=== PATIENT | female | born 1995 | race Caucasian/White ===

== ENCOUNTER 2019-08-14 15:56 | Emergency (ER) | payer OTHER ==
[~2019-08-14] VITALS: Ht 160 cm; Wt 54.4 kg
== END 2019-08-14 23:30 | disposition home or self-care (01) ==
LOC: ER 15:56
DX: O21.0 Mild hyperemesis gravidarum (principal); Z34.01 Encounter for supervision of normal first pregnancy, first trimester

== ENCOUNTER → 2019-08-19 | Emergency (ER) | payer OTHER ==
[~2019-08-19] VITALS: Ht 160 cm; Wt 54.4 kg
== END | disposition home or self-care (01) ==
LOC: ER 20:35
DX: O21.0 Mild hyperemesis gravidarum (principal); Z34.81 Encounter for supervision of other normal pregnancy, first trimester

== ENCOUNTER 2019-11-19 14:25 | Inpatient (IN) | payer OTHER ==
[~2019-11-19] VITALS: Ht 160 cm; Wt 59.0 kg
== END 2019-11-22 14:33 | disposition home or self-care (01) | DRG 833 ==
LOC: OBS/DEL 14:25 → LDR 11-20 10:46 → OB/GYN 11-20 10:46
PROVIDERS: ADMIT Obstetrics & Gynecology Obstetrics
PROC: 8E0ZXY6 Isolation (ICD-10-PCS; principal; 2019-11-20)
PROC: 4A1HXCZ Monitoring of Products of Conception, Cardiac Rate, External Approach (ICD-10-PCS; 2019-11-20)
DX: O26.892 Other specified pregnancy related conditions, second trimester (principal); J10.1 Influenza due to other identified influenza virus with other respiratory manifestations; B96.0 Mycoplasma pneumoniae [M. pneumoniae] as the cause of diseases classified elsewhere

== ENCOUNTER 2019-12-04 18:16 | Inpatient (IN) | payer OTHER ==
[~2019-12-04] VITALS: Ht 160 cm; Wt 64.9 kg
[2019-12-04] MEDS ORDERED: PRENATAL CAPLE1 EAC1 PO (18:51)
== END 2019-12-06 16:28 | disposition home or self-care (01) | DRG 833 ==
LOC: OBS/DEL 18:16 → LDR 12-05 14:23 → OBS/DEL 12-05 14:23 → LDR 12-05 14:57 → EDBD 12-06 16:28
PROVIDERS: ADMIT Obstetrics & Gynecology Obstetrics
PROC: BY4FZZZ Ultrasonography of Third Trimester, Single Fetus (ICD-10-PCS; principal; 2019-12-05)
PROC: 4A1HXCZ Monitoring of Products of Conception, Cardiac Rate, External Approach (ICD-10-PCS; 2019-12-05)
DX: O47.03 False labor before 37 completed weeks of gestation, third trimester (principal); J11.1 Influenza due to unidentified influenza virus with other respiratory manifestations; B96.0 Mycoplasma pneumoniae [M. pneumoniae] as the cause of diseases classified elsewhere

== ENCOUNTER 2020-02-17 17:39 | Inpatient (IN) | payer OTHER ==
[~2020-02-17] VITALS: Ht 160 cm; Wt 3.2 kg
[~2020-02-17 17:39] MED LIST: PRENATAL CAPLE1 EAC1 PO
== END 2020-02-20 14:55 | disposition home or self-care (01) | DRG 785 ==
LOC: OBS/DEL 17:39 → LDR 02-18 13:07 → O/R 02-18 15:47 → OB/GYN 02-18 16:28
PROVIDERS: ADMIT Obstetrics & Gynecology Obstetrics
PROC: 0UB70ZZ Excision of Bilateral Fallopian Tubes, Open Approach (ICD-10-PCS; 2020-02-18)
PROC: 3E033VJ Introduction of Other Hormone into Peripheral Vein, Percutaneous Approach (ICD-10-PCS; 2020-02-18)
PROC: 4A1HXFZ Monitoring of Products of Conception, Cardiac Rhythm, External Approach (ICD-10-PCS; 2020-02-18)
PROC: BY4FZZZ Ultrasonography of Third Trimester, Single Fetus (ICD-10-PCS; 2020-02-18)
PROC: 10D00Z1 Extraction of Products of Conception, Low, Open Approach (ICD-10-PCS; principal; 2020-02-18 13:00)
DX: O76 Abnormality in fetal heart rate and rhythm complicating labor and delivery (principal); Z3A.39 39 weeks gestation of pregnancy; Z37.0 Single live birth; Z30.2 Encounter for sterilization